=== PATIENT | female | born 1945 | race Caucasian/White ===

== ENCOUNTER 2018-12-17 10:01 | Outpatient (CLI) | payer MEDICARE | END 2018-12-17 23:59 | disposition home or self-care (01) | LOC: LAB 10:01 | PROVIDERS: ATTEND Nurse Practitioner Family | DX: Z00.8 Encounter for other general examination (principal); Z01.419 Encounter for gynecological examination (general) (routine) without abnormal findings; Z11.59 Encounter for screening for other viral diseases; R53.83 Other fatigue | CPT/HCPCS: 36415; 80061; 82306; 83721; 84443; 86803; 87389 ==